=== PATIENT | male | born 1990 | race African-American/Black ===

== ENCOUNTER 2020-02-14 12:05 | Emergency (ER) | payer SELFPAY ==
--- NOTE | ~2020-02-14 | XR_ITS ---
EXAMINATION: XR finger 2nd RT min 2V DATE: 02/14/2020 13:30 INDICATION: Right hand second digit injury. TECHNIQUE: 4 views of right hand second digit were obtained. COMPARISON: None. FINDINGS: Bone alignment is normal. No fracture. Joint spaces are normal. There is a laceration of th e radial palmar aspect of the digit. IMPRESSION: 1. No fracture or radiopaque foreign body. Reviewed, dictated and finalized at location A.
[2020-02-14 12:36] VITALS: BP 140/97; PULSE 81; RESP 18; TEMP 36.8; O2SAT 100
--- NOTE | 2020-02-14 12:57 | ED.GENADULT ---
HPI - General Adult General Chief complaint: Extremity Injury, Upper <Quique Marin PA-C - Last Filed: 02/14/20 13:45> Stated complaint: finger laceration <Quiqeu Marin PA-C - Last Filed: 02/14/20 13:45> Time Seen by Provider: 02/14/20 12:46 <Quique Marin PA-C - Last Filed: 02/14/20 13:45> Source: patient <Quique Marin PA-C - Last Filed: 02/14/20 13:45> Mode of arrival: ambulatory <Quique Marin PA-C - Last Filed: 02/14/20 13:45> Limitations: no limitations <Quique Marin PA-C - Last Filed: 02/14/20 13:45> History of Present Illness HPI narrative: Patient is a 29-year-old male who presents to emergency department for evaluation of having struck his finger with a sledgehammer while working today patient is unsure as to his tetanus status patient notes mild aching pain worse with touch and activity patient denies any radicular symptoms or paresthesias has not had anything for pain and presents to the emergency department in no distress <Quique Marin PA-C - Last Filed: 02/14/20 13:45> Related Data Home medications: Home Medications Medication Instructions Recorded Confirmed No Home Medications 02/14/20 02/14/20 <Quique Marin PA-C - Last Filed: 02/14/20 13:45> Allergies/adverse reactions: Allergies Allergy/AdvReac Type Severity Reaction Status Date / Time guaifenesin [From Robitussin] Allergy Itching Verified 02/14/20 12:41 <Quique Marin PA-C - Last Filed: 02/14/20 13:45> Review of Systems Review of Systems: All systems reviewed & are unremarkable except as noted in HPI and below <Quique Marin PA-C - Last Filed: 02/14/20 13:45> [facility] Social History Social History: Social History Gender identity (if verbalized by the patient): Male <TAMMI Goel Last Filed: 02/14/20 13:45> Exam Narrative: Exam Narrative: GENERAL: Well-appearing, well-nourished, and in no acute distress. HEAD: Normocephalic, atraumatic. EYES: PERRLA and EOMI. ENT: Nares clear, no rhinorrhea or epistaxis. Mucous membranes moist. EXTREMITIES: Normal range of motion. No edema. Patient with 1-1/2 cm linear laceration of the mid phalanx of the right index finger SKIN: Warm, dry, no rash. NEURO: No focal deficits. Alert and oriented x3. Cranial nerves II through XII grossly intact. Neurovascularly intact PSYCH: Normal mood and affect. <TAMMI Goel Last Filed: 02/14/20 13:45> Course Course Emergency Course: Patient in the room in no distress aware of case findings treatment plan and diagnosis wound was closed in the emergency department <Quique Marin PA-C - Last Filed: 02/14/20 13:45> Vital Signs Vital signs: Vital Signs Temperature 36.8 C 02/14/20 12:36 Pulse Rate 81 02/14/20 12:36 Respiratory Rate 18 02/14/20 12:36 Blood Pressure 140/97 H 02/14/20 12:36 Pulse Oximetry 100 02/14/20 12:36 Temperature 36.6 C 02/14/20 13:58 Pulse Rate 79 02/14/20 13:58 Respiratory Rate 18 02/14/20 13:58 Blood Pressure 137/102 H 02/14/20 13:58 Pulse Oximetry 100 02/14/20 13:58 <TAMMI Goel Last Filed: 02/14/20 13:45> Vital Signs Temperature 36.8 C 02/14/20 12:36 Pulse Rate 81 02/14/20 12:36 Respiratory Rate 18 02/14/20 12:36 Blood Pressure 140/97 H 02/14/20 12:36 Pulse Oximetry 100 02/14/20 12:36 Temperature 36.6 C 02/14/20 13:58 Pulse Rate 79 02/14/20 13:58 Respiratory Rate 18 02/14/20 13:58 Blood Pressure 137/102 H 02/14/20 13:58 Pulse Oximetry 100 02/14/20 13:58 <Sachi [address] MD - Last Filed: 02/14/20 15:31> Procedures Laceration Laceration 1: Date: 02/14/20 <Quique Marin PA-C - Last Filed: 02/14/20 13:45> Time: 13:44 <Quique Marin PA-C - Last Filed: 02/14/20 13:45> Site: upper extremity <Quique Gonzalez
[2020-02-14] MEDS: IBUPROFEN 600 MG TABLET PO (13:00)
[2020-02-14] MEDS: TETANUS,DIPHTHERIA,AC PERTUSSIS ADULT (0.5 ML) BOOSTRIX IM (13:01)
[2020-02-14] MEDS: LIDOCAINE HCL 1% LOCAL INJ 20 ML VIAL (13:31)
[2020-02-14 13:58] VITALS: BP 137/102; PULSE 79; RESP 18; TEMP 36.6; O2SAT 100
== END 2020-02-14 14:00 | disposition home or self-care (01) ==
PROVIDERS: Emergency Provider Emergency Medicine
DX: S61.210A Laceration without foreign body of right index finger without damage to nail, initial encounter (principal); W27.8XXA Contact with other nonpowered hand tool, initial encounter; Z23 Encounter for immunization
CPT/HCPCS: 12001; 73140; 90471; 90715; 99283; A9270

== ENCOUNTER 2023-04-17 16:36 | Emergency (ER) | payer SELFPAY ==
--- NOTE | ~2023-04-17 | CT_ITS ---
EXAMINATION: CT abdomen pelvis w con DATE: 04/17/2023 17:54 INDICATION: Right flank pain TECHNIQUE: Computed tomography (CT) of the abdomen and pelvis was performed without intravenous contr ast. The dose-length product was 391.65 mGy-cm. Automated exposure control and iterative reconstructi on technique were employed. COMPARISON: None. FINDINGS: Lung bases are unremarkable. Heart size normal. No significant pleural or pericardial effus ion. Normal appendix. Fatty infiltration of the liver. The spleen, pancreas, adrenal glands and kidne ys are unremarkable. Small subcentimeter hypodensity of the right kidney, most likely benign cysts. N o abnormal pelvic masses or fluid collections. Nonobstructive bowel gas pattern. No free air or free fluid. No significant vascular abnormality. No lymphadenopathy. IMPRESSION: 1. No acute abdominal abnormality. Reviewed, dictated and finalized at location A.
[2023-04-17 16:51] VITALS: BP 150/104; PULSE 85; RESP 18; TEMP 36.6; O2SAT 100
[2023-04-17 17:15] LABS: Appearance Urine Clear (Clear); Bilirubin Urine Negative (Negative); Blood Urine Negative (Negative); Color Urine Yellow (Yellow); Glucose Urine UA Negative (Negative); Ketones Urine Trace mg/dL (Negative); Leukocyte Esterase Ur Negative LEU/UL (Negative); Nitrate Urine Negative (Negative); Protein Urine Negative (Negative); Specific Grav Ur 1.002 (1.001-1.035); Urobilinogen Urine 0.2 mg/dL (<2.0); pH Urine 6.5 (5.0-9.0)
[2023-04-17 17:18] LABS: Add Urine Microscopic? NO
[2023-04-17 17:31] LABS: Basophils Percent Auto 0.4 % (0.2-1.2); Eosinophils Absolute Auto 0.1 K/mm3 (0-0.3); Eosinophils Percent Auto 1.6 % (0-4.4); Hematocrit 43.5 % (42.0-52.0); Hemoglobin 14.7 g/dL (14.0-18.0); Lymphocytes Percent Auto 27.2 % (18.3-44.2); Mean Corpuscular HGB Conc 33.8 g/dl (32-36); Mean Corpuscular Hemoglobin 32.5 pg (26-34); Monocytes Absolute Auto 0.5 K/mm3 (0.1-0.6); Monocytes Percent Auto 9.9 % (2.6-8.5); Neutrophils Absolute Auto 3.1 K/mm3 (1.3-6.7); Neutrophils Percent Auto 60.9 % (45.5-73.1); Platelet Count Result 203 k/mm3 (150-375); Red Blood Count 4.53 M/mm3 (4.6-6.20); Red Cell Distribution Width 12.8 % (11.5-14.5); White Blood Count 5.1 K/mm3 (4.5-10.0)
[2023-04-17 17:34] LABS: Alanine Aminotransferase 234 U/L (6-50); Alkaline Phosphatase 54 U/L (38-126); Anion Gap 9 mmol/L (8-16); Aspartate Amino Transferase 182 U/L (17-59); Bilirubin,Total 1.1 mg/dL (0.2-1.3); Blood Urea Nitrogen 5 mg/dL (9-20); Calcium 9.7 mg/dL (8.4-10.2); Carbon Dioxide 28 mmol/L (22-30); Chloride 99 mmol/L (98-107); Estimated CRCL calculation 108 ml/min; Estimated Glomerular Filt Rate > 60; Glucose 97 mg/dL (65-110); Potassium 3.3 mmol/L (3.4-5.0); Sodium 136 mmol/L (137-145)
[2023-04-17 18:12] VITALS: BP 145/111; PULSE 86; RESP 18; O2SAT 100
--- NOTE | 2023-04-17 18:30 | ED.GENADULT ---
[facility] - General Adult General Chief complaint: Urogenital-Male Stated complaint: R flank pain x2 weeks Time Seen by Provider: 04/17/23 17:14 Source: patient Mode of arrival: ambulatory Limitations: no limitations History of Present Illness [facility] narrative: This is a 32-year-old male who presents to the ED with chief complaint of right flank pain for the past 2 weeks. Reports this started after heavy night of drinking. Reports that the pain just has not gone away. Denies urinary symptoms, nausea, vomiting, chest pain, shortness of breath, cough. He denies any known injury. Denies numbness, weakness or midline back pain. Related Data Allergies Allergy/AdvReac Type Severity Reaction Status Date / Time guaifenesin [From Robitussin] Allergy Itching Verified 04/17/23 17:09 Review of Systems Review of Systems: All systems as dictated in [facility] Social History Social History Gender identity (if verbalized by the patient): Male Exam Narrative: GENERAL: Well-appearing, well-nourished, and in no acute distress. HEAD: Normocephalic, atraumatic. EYES: PERRLA and EOMI. ENT: Nares clear, no rhinorrhea or epistaxis. Mucous membranes moist. Oropharynx without tonsillar hypertrophy exudate or other lesions. NECK: Supple. No adenopathy or masses. CHEST: No respiratory distress. Clear to auscultation. No wheezes rales or rhonchi HEART: Regular rate and rhythm. No murmur heard. Normal peripheral pulses. ABDOMEN: There is right flank tenderness. Negative for flank tenderness. Soft, otherwise nontender, nondistended, normal active bowel sounds. MSK: Normal range of motion. No edema. SKIN: Warm, dry, no rash. NEURO: Alert and oriented x3. No focal deficits. PSYCH: Normal mood and affect. Course Vital Signs Vital signs: Vital Signs Temperature 98 F 04/17/23 16:51 Pulse Rate 85 04/17/23 16:51 Respiratory Rate 18 04/17/23 16:51 Blood Pressure 150/104 H 04/17/23 16:51 Pulse Oximetry 100 04/17/23 16:51 Oxygen Delivery Room Air 04/17/23 16:51 Temperature 98 F 04/17/23 16:51 Pulse Rate 86 11/02/23 18:12 Respiratory Rate 18 04/17/23 18:12 Blood Pressure 145/111 H 04/17/23 18:12 Pulse Oximetry 100 04/17/23 18:12 Oxygen Delivery Room Air 04/17/23 16:51 Medical Decision Making MDM Narrative Medical decision making narrative: This is a 32-year-old male who presents to the ED with chief complaint of right flank pain for the past 2 weeks. Vitals are normal. Exam shows mild right flank tenderness, however he is having no urinary symptoms at all. Lab work-up is largely unremarkable. He does have slight elevations to AST and ALT. CT scan is unrevealing for any acute abdominal findings. There is evidence of fatty liver on the CT scan so this was discussed with the patient in conjunction with his liver labs. Encouraged to follow-up with PCP on this. UA shows trace ketones but no infection. Symptoms most likely consistent with musculoskeletal pain. Pt will be discharged in stable condition. Return precautions given and supportive measures discussed. Pt is understanding and agreeable with plan for discharge and follow-up with PCP. Vital Signs Vital Signs: Vital Signs Temperature 98 F 04/17/23 16:51 Pulse Rate 85 04/17/23 16:51 Respiratory Rate 18 04/17/23 16:51 Blood Pressure 150/104 H 04/17/23 16:51 Pulse Oximetry 100 04/17/23 16:51 Oxygen Delivery Room Air 04/17/23 16:51 Temperature 98 F 04/17/23 16:51 Pulse Rate 86 04/17/23 18:12 Respiratory Rate 18 04/17/23 18:12 Blood Pressure 145/111 H 04/17/23 18:12 Pulse Oximetry 100 04/17/23 18:12 Oxygen Delivery Room Air 04/17/23 16:51 Lab Data 04/17/23 17:08 04/17/23 17:08 Labs: Lab Results 04/17/23 04/17/23 Range/Units 16:58 17:08 WBC 5.1 (4.5-10.0) K/mm3 RBC 4.53 L (4.6-6.20)
== END 2023-04-17 19:01 | disposition home or self-care (01) ==
PROVIDERS: Family Medicine; Emergency Provider Physician Assistant
DX: R10.9 Unspecified abdominal pain (principal)
CPT/HCPCS: 36415; 74177; 80053; 81003; 85025; 99284; Q9967

== ENCOUNTER 2023-05-14 21:29 | Emergency (ER) | payer SELFPAY ==
--- NOTE | ~2023-05-14 | XR_ITS ---
EXAMINATION: XR chest 2V Exam Date/Time: 05/14/2023 21:40 NIGHT SHIFT SUPERVISOR HISTORY: chest pain LEFT SIDED THAT RADIATES TO LEFT ARM Comparison: None. RESULT: Lines, tubes, and devices: None. Lungs and pleura: Clear. Cardiomediastinal silhouette: Normal. Other: No acute osseous or upper abdominal finding. IMPRESSION: No acute cardiopulmonary process. Reviewed, dictated and finalized at location K. T SHIFT SUPERVISOR
--- NOTE | 2023-05-14 21:30 | ECG_ITS ---
Measurements Intervals [place] Rate: 99 P: 79 IN: 159 QRS: 66 QRSD: 88 T: 32 QT: 330 QTc: 424 Interpretive Statements SINUS RHYTHM BORDERLINE ST-T WAVE ABNORMALITY- INFERIOR LEADS BORDERLINE ECG NO PREVIOUS ECG AVAILABLE FOR COMPARISON Electronically Signed On 05-15-2023 6:27:41 ROAD FREIGHT CONDUCTOR by Edison Rose D.O.
[2023-05-14 21:38] VITALS: BP 150/103; PULSE 100; RESP 16; TEMP 36.6; O2SAT 100
[2023-05-14 21:49] LABS: Basophils Percent Auto 0.5 % (0.2-1.2); Eosinophils Absolute Auto 0.1 K/mm3 (0-0.3); Eosinophils Percent Auto 1.7 % (0-4.4); Hematocrit 42.3 % (42.0-52.0); Hemoglobin 14.4 g/dL (14.0-18.0); Immature Granulocyte Absolute 0.01 K/mm3 (0.00-0.031); Immature Granulocyte Percent A 0.2 % (0-0.5); Lymphocytes Absolute Auto 1.35 K/mm3 (0.9-3.2); Lymphocytes Percent Auto 32.9 % (18.3-44.2); Mean Corpuscular Hemoglobin 32.6 pg (26-34); Mean Corpuscular Volume 95.7 fl (80-100); Mean Platelet Volume 9.7 fl (7.4-10.4); Monocytes Absolute Auto 0.5 K/mm3 (0.1-0.6); Monocytes Percent Auto 11.7 % (2.6-8.5); Neutrophils Absolute Auto 2.2 K/mm3 (1.3-6.7); Platelet Count Result 219 k/mm3 (150-375); Red Blood Count 4.42 M/mm3 (4.6-6.20); Red Cell Distribution Width 12.8 % (11.5-14.5); White Blood Count 4.1 K/mm3 (4.5-10.0)
[2023-05-14 21:59] LABS: Alanine Aminotransferase 296 U/L (6-50); Alkaline Phosphatase 70 U/L (38-126); Anion Gap 14 mmol/L (8-16); Aspartate Amino Transferase 248 U/L (17-59); Bilirubin,Total 1.2 mg/dL (0.2-1.3); Blood Urea Nitrogen 9 mg/dL (9-20); Calcium 9.7 mg/dL (8.4-10.2); Carbon Dioxide 26 mmol/L (22-30); Chloride 97 mmol/L (98-107); Estimated CRCL calculation 108 ml/min; Estimated Glomerular Filt Rate > 60; Glucose 95 mg/dL (65-110); Lipase 89 U/L (23-300); Potassium 3.5 mmol/L (3.4-5.0); Sodium 137 mmol/L (137-145)
[2023-05-14 22:00] LABS: INR 0.9; Prothrombin Time 12.8 Seconds (11.1-14.7)
[2023-05-14 22:01] LABS: Partial Thromboplastin Time 25.8 SECONDS (22.3-36.8)
[2023-05-14 22:11] LABS: Troponin I < 0.012 ng/mL (0.000-0.034)
[2023-05-14 23:13] VITALS: BP 131/93; PULSE 94; RESP 15; O2SAT 100
[2023-05-14] MEDS: ASPIRIN 81 MG CHEWABLE TABLET 324 MG PO (23:15)
--- NOTE | 2023-05-15 00:06 | ED.GENADULT ---
HPI - General Adult General Chief complaint: Chest Pain Stated complaint: L arm pain, intermittent CP Time Seen by Provider: 05/14/23 22:59 History of Present Illness HPI narrative: Patient is a 32-year-old gentleman who presents to emergency department with chief complaint of chest pain. Patient reports that yesterday started having some pain in the left side of his chest patient states today felt as though his left arm was heavier. The patient states that he has had an episode similar to this recently but did not have the discomfort in his arm the patient reports he did not see a primary care provider ordered not seen emergency department. The patient reports no prior history of medical issues denies family history for young cardiac disease also reports that he has recently quit smoking. Related Data Allergies Allergy/AdvReac Type Severity Reaction Status Date / Time guaifenesin [From Robitussin] Allergy Itching Verified 04/17/23 17:09 Review of Systems Review of Systems: A 10 system review of systems was completed on the patient and is negative except for what is stated in the HPI. Nursing and ancillary documentation was reviewed. [facility] Social History Social History Gender identity (if verbalized by the patient): Male Exam Narrative: GENERAL: Well-appearing, well-nourished, and in no acute distress. HEAD: Normocephalic, atraumatic. EYES: PERRLA and EOMI. ENT: Nares clear, no rhinorrhea or epistaxis. Mucous membranes moist. NECK: Supple. CHEST: Clear to auscultation. No respiratory distress. HEART: Regular rate and rhythm. No murmur heard. Normal peripheral pulses. ABDOMEN: Soft, nontender, nondistended, normal active bowel sounds. EXTREMITIES: Normal range of motion. No edema. SKIN: Warm, dry, no rash. NEURO: No focal deficits. Alert and oriented x3. PSYCH: Normal mood and affect. Course Vital Signs Vital signs: Vital Signs Temperature 36.6 C 05/14/23 21:38 Pulse Rate 100 05/14/23 21:38 Respiratory Rate 16 05/14/23 21:38 Blood Pressure 150/103 H 05/14/23 21:38 Pulse Oximetry 100 05/14/23 21:38 Oxygen Delivery Room Air 05/14/23 21:38 Temperature 36.6 C 05/14/23 21:38 Pulse Rate 94 05/14/23 23:13 Respiratory Rate 15 05/14/23 23:13 Blood Pressure 131/93 H 05/14/23 23:13 Pulse Oximetry 100 05/14/23 23:13 Oxygen Delivery Room Air 05/14/23 21:38 Medical Decision Making MDM Narrative Medical decision making narrative: Differential diagnosis includes ACS, noncardiac chest pain, pneumothorax, laboratory studies were obtained and show normal CBC CMP was within normal limits AST and ALT were slightly elevated at 248 and 296 respectively. These were also slightly elevated earlier this month the root was evaluated troponin was less than 0.012. Bilirubin was normal at 1.2 on patient's previous ER visit with the elevated liver enzymes and CT scan showed fatty liver Vital Signs Vital Signs: Vital Signs Temperature 36.6 C 05/14/23 21:38 Pulse Rate 100 05/14/23 21:38 Respiratory Rate 16 05/14/23 21:38 Blood Pressure 150/103 H 05/14/23 21:38 Pulse Oximetry 100 05/14/23 21:38 Oxygen Delivery Room Air 05/14/23 21:38 Temperature 36.6 C 05/14/23 21:38 Pulse Rate 94 05/14/23 23:13 Respiratory Rate 15 05/14/23 23:13 Blood Pressure 131/93 H 05/14/23 23:13 Pulse Oximetry 100 05/14/23 23:13 Oxygen Delivery Room Air 05/14/23 21:38 Lab Data 05/14/23 21:44 05/14/23 21:44 Labs: Lab Results 05/14/23 05/15/23 Range/Units 21:44 00:56 WBC 4.1 L (4.5-10.0) K/mm3 RBC 4.42 L (4.6-6.20) M/mm3 Hgb 14.4 (14.0-18.0) g/dL Hct 42.3 (42.0-52.0) % MCV 95.7 (80-100) fl MCH 32.6 (26-34) pg MCHC 34.0 (32-36) g/dl RDW 12.8 (11.5-14.5) % Plt Count 219 (150-375) k/mm3 MPV 9.7 (7.4-10.4) fl
[2023-05-15 01:28] LABS: Troponin I < 0.012 ng/mL (0.000-0.034)
[2023-05-15 01:39] VITALS: BP 138/94; PULSE 100; RESP 15; O2SAT 100
== END 2023-05-15 01:40 | disposition home or self-care (01) ==
PROVIDERS: Emergency Provider Emergency Medicine
DX: R07.89 Other chest pain (principal)
CPT/HCPCS: 36415; 71046; 80053; 83690; 84484; 85025; 85610; 85730; 93005; 99284; A9270

== ENCOUNTER 2024-08-01 10:43 | Emergency (ER) | payer OTHER, SELFPAY ==
--- NOTE | ~2024-08-01 | XR_ITS ---
HISTORY: WOKE UP W R WRIST PAIN THURS DENIES INJURY COMPARISON: None TECHNIQUE: 4 views of the right wrist were performed. FINDINGS: No acute fracture is identified. The carpal arcs are intact. Mild radiocarpal joint space narrowing with sclerosis of the distal radius is present. The remaining visualized joint spaces are otherwise preserved. Bone mineralization is unremarkable. No significant soft tissue swelling is noted. No radiopaque foreign body is identified. IMPRESSION: Trace degenerative disease, without acute fracture. Reviewed, dictated and finalized at location A. [employer]SOFT CRM DEVELOPER
--- OUTSIDE RECORDS SUMMARY | 2024-08-01 10:45 | XMS_ITS | Clinical Summary ---
Author Organization [facility] Address [address] [place] [address] Care Team Providers Care Forest Law And Policy Professor Name Role Phone No, Physician Primary Care Provider [phone] Allergies Active Allergy Reactions Criticality Noted Date Comments Guaifenesin Rash Medium 08/17/2014 Rash Medications ondansetron ODT (ZOFRAN-ODT) 4 mg disintegrating tablet Take 1 tablet (4 mg total) by mouth every 8 (eight) hours as needed for nausea or vomiting 10 tablet Active Social History Tobacco Use Types Packs/Day Years Used Date Smoking Tobacco: Never Assessed Personal Safety Answer Date Recorded Getting School Help Needed Not on file 01/02 Sex and Gender Information Value Date Recorded Sex Assigned at Not on file 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 Gender Identity Not on file Sexual Orientation Not on file Last Filed Vital Signs Vital Sign Reading Time Taken Comments Blood Pressure 138/88 12/07/2022 6:00 PM CDT Pulse 68 12/07/2022 6:00 PM CDT Temperature 36.7 C (98.1 F) 12/07/2022 2:26 PM CDT Respiratory Rate 16 12/07/2022 6:00 PM CDT Oxygen Saturation 98% 12/07/2022 6:00 PM CDT Inhaled Oxygen Concentration - - Weight 77.1 kg (170 lb) 12/07/2022 2:26 PM CDT Height 177.8 cm (5' 10 ) 12/07/2022 2:26 PM CDT Body Mass Index 24.39 12/07/2022 2:26 PM CDT Plan of Treatment Health Maintenance Due Date Last Done Comments Depression Screening 1991 Hepatitis C Screening 1991 Varicella Vaccines (1 of 2 - 13+ 2-dose series) 11/29/2004 Regular Well Visit/Exam 18-64 11/29/2009 Influenza Vaccine (#1) 2024 DTaP/Tdap/Td Vaccine (7 - Td or Tdap) 02/13/2030 02/14/2020, 12/17/1995, 01/01/1994, Additional history exists HPV Vaccines Aged Out No longer eligi ble based on patient's age to complete this topic Pneumococcal vaccine <65 Aged Out No longer eligible based on patient's age to complete this topic Care Teams Forest Law And Policy Professor Relationship Specialty Start Date End Date No, Physician PCP - General 12/07/22
--- OUTSIDE RECORDS SUMMARY | 2024-08-01 10:45 | XMS_ITS | Referral Summary ---
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
[2024-08-01 10:54] VITALS: BP 137/100; PULSE 95; RESP 20; TEMP 36.5; O2SAT 100
--- OUTSIDE RECORDS SUMMARY | 2024-08-01 11:32 | XMS_ITS | Referral Summary ---
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
--- OUTSIDE RECORDS SUMMARY | 2024-08-01 11:32 | XMS_ITS | Clinical Summary ---
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
--- NOTE | 2024-08-01 11:43 | ED.GENADULT ---
HPI - General Adult General Chief complaint: Extremity Problem,Nontraumatic Stated complaint: right wrist pain Time Seen by Provider: 08/01/24 11:15 History of Present Illness HPI narrative: Patient is a 33-year-old male who presents ER with pain to his right thumb and wrist for worsening over last 2 days. No known injury. Has developed swelling. Pain is worse with flexion extension of the wrist and at the thumb. He has pain with pinching. No anesthesia but has some tingling that goes into his 2nd digit with carpal tunnel compression. Works as a cook at [employer]. Related Data Allergies Allergy/AdvReac Type Severity Reaction Status Date / Time guaifenesin (From Robitussin) Allergy Itching Verified 04/17/23 17:09 Review of Systems Constitutional: Constitutional: Reports no additional constitutional complaints Musculoskeletal: Musculoskeletal: Reports no additional musculoskeletal complaints PMFSH Past Medical History Medical History (Updated 08/01/24 @ 17:34 by Chester Mendez MD) Healthy adult male Surgical History Surgical History (Updated 08/01/24 @ 17:34 by Chester Mendez MD) No pertinent past surgical history Social History Social History Gender identity (if verbalized by the patient): Male Exam Narrative: GENERAL: Well-appearing, well-nourished, and in no acute distress. HEAD: Normocephalic, atraumatic. ENT: Mucous membranes moist. EXTREMITIES: TTP over the right proximal thumb at the wrist. Has limited flexion extension due to pain. Has swelling in the area and is tenderness at the anatomical snuffbox but may be more over the tendon itself. Range of motion the fingers intact. Mild discomfort with carpal tunnel compression with tingling reported in the 2nd digit. SKIN: Warm, dry, no rash. NEURO: Alert and oriented x3. PSYCH: Normal mood and affect. Course Course Emergency Course: No known injury. Suspect de Quervain tenosynovitis. Discussed immobilization with a wrist splint and I have shown him images of cyst appropriate splints that he can place on his thumb. Recommend anti-inflammatories and rest as well as follow-up with ortho. Vital Signs Vital signs: Vital Signs Temperature 97.7 F 08/01/24 10:54 Pulse Rate 95 08/01/24 10:54 Respiratory Rate 08/01/24 10:54 Blood Pressure 137/100 H 08/01/24 10:54 Pulse Oximetry 08/01/24 10:54 Oxygen Delivery Room Air 08/01/24 10:54 Temperature 97.7 F 08/01/24 10:54 Pulse Rate 95 08/01/24 10:54 Respiratory Rate 08/01/24 10:54 Blood Pressure 137/100 H 08/01/24 10:54 Pulse Oximetry 08/01/24 10:54 Oxygen Delivery Room Air 08/01/24 10:54 Medical Decision Making Vital Signs Vital Signs: Vital Signs Temperature 97.7 F 08/01/24 10:54 Pulse Rate 95 08/01/24 10:54 Respiratory Rate 08/01/24 10:54 Blood Pressure 137/100 H 08/01/24 10:54 Pulse Oximetry 08/01/24 10:54 Oxygen Delivery Room Air 08/01/24 10:54 Temperature 97.7 F 08/01/24 10:54 Pulse Rate 08/01/24 10:54 Respiratory Rate 08/01/24 10:54 Blood Pressure 137/100 H 08/01/24 10:54 Pulse Oximetry 08/01/24 10:54 Oxygen Delivery Room Air 08/01/24 10:54 Imaging Data Radiologist's impression: ITS Impressions Wrist X-Ray 08/01/24 11:27 IMPRESSION: Trace degenerative disease, without acute fracture. Discharge Plan Discharge Clinical Impression: De Quervain's tenosynovitis, right Patient Disposition: Home, Self-Care Condition: Stable Instructions: De Quervain Disease (ED) Additional Instructions: Purchase a thumb splint that immobilizes your right thumb in wear it 24 hours a day. Take naproxen to help with inflammation. This is an overuse injury and rest is the most important treatment. Follow up with Orthopedic surgery or primary care physician for further evaluation. Patient Language: Kinyarwanda Prescriptions: New naproxen 375 mg tablet 375 mg PO BID Qty: 14 0RF No Action cyclobenzaprine 10 mg tablet 10 mg PO HS PRN (Reason: muscle spasm) Qty: 14 0RF Follow-up/Referrals: Chandra Cook MD [Physician] - 1 Week PHYSICIAN,PRIMARY SPECIAL EDUCATION TEACHER [Primary Care Provider] -
== END 2024-08-01 11:57 | disposition home or self-care (01) ==
PROVIDERS: Emergency Provider Emergency Medicine
DX: M65.4 Radial styloid tenosynovitis [de Quervain] (principal)
CPT/HCPCS: 73110; 99283

== ENCOUNTER 2025-03-11 18:42 | Emergency (ER) | payer OTHER, SELFPAY ==
--- NOTE | ~2025-03-11 | XR_ITS ---
EXAMINATION: XR chest 2V 03/11/2025 19:27 INDICATION: Heart palpitations. PROCEDURE: 2 view chest COMPARISON: 05/14/2023 FINDINGS: The lungs are clear. The cardiomediastinal silhouette is within normal limits. There are no pleural effusions. There is no pneumothorax suspected. IMPRESSION: 1: NO ACUTE CARDIOPULMONARY DISEASE. Reviewed, dictated and finalized at location O.
[2025-03-11 18:51] VITALS: BP 138/91; PULSE 76; RESP 16; TEMP 36.4; O2SAT 100
--- NOTE | 2025-03-11 18:53 | ECG_ITS ---
Test Date: 2025-03-11 19:09:43 Measurements Intervals [place] Rate: 86 P: 65 MO: 162 QRS: 55 QRSD: 97 T: 13 QT: 361 QTc: 433 Interpretive Statements SINUS RHYTHM NONSPECIFIC T-WAVE ABNORMALITY No previous ECG available for comparison Electronically Signed On 03-12-2025 09:10:05 CDT by Misty Torres M.D.
--- NOTE | 2025-03-11 19:06 | ED.GENADULT ---
HPI - General Adult General Stated complaint: Heart Problems Time Seen by Provider: 03/11/25 19:06 Source: patient Mode of arrival: ambulatory Limitations: no limitations History of Present Illness HPI narrative: 34-year-old male presents with complaint of 2 episodes of heart palpitations with shortness of breath, tightness to left jaw and diaphoresis. Both times episodes happened while at work. Episodes happened 1 week apart from each other. Lasted only a few seconds and then resolved. Both times he left work. The 1st time he went home and rested. This time he came to the urgent care. Needs work excuse because he left work. 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 Patient states that he has been stressed. Car is broken down and is taking [employer] in to work. Patient last saw a primary care physician in August. Missed his appointment to get his labs drawn and never went back. All systems reviewed and negative except as noted above. Related Data Home Medications ?Medication ?Instructions ?Recorded ?Confirmed ?Last Taken ?Type No Home Medications 03/11/25 03/11/25 Unknown History Allergies Allergy/AdvReac Type Severity Reaction Status Date / Time guaifenesin (From Robitussin) Allergy Itching Verified 03/11/25 19:37 [facility] Past Medical History Medical History (Updated 03/11/25 @ 19:45 by Edna Patel NP) Healthy adult male Surgical History Surgical History (Updated 08/01/24 @ 17:34 by Chester Mendez MD) No pertinent past surgical history Social History Social History Gender identity (if verbalized by the patient): Male Comments At time of signature, agree with nursing past medical, surgical, social and family history. There is no relevant family history pertinent to the presenting complaint. Exam Narrative: GENERAL: This is a well-nourished, well-developed patient, in no apparent distress. HEAD: normocephalic, atraumatic. EYES: PERRL. Sclera clear/white. Vision is grossly intact. EARS: External ears normal, auditory canals clear and without drainage, TMs normal without perforation. Hearing grossly intact. NOSE: External nose normal with no obvious nasal discharge, nares without redness, no rhinorrhea. THROAT: Mucous membranes moist, posterior pharynx clear. NECK: Neck supple, non-tender without lymphadenopathy, masses or thyromegaly. CARDIOVASCULAR: Regular rate and rhythm without murmurs, gallops, or rubs. RESPIRATORY: Clear to auscultation. Breath sounds equal bilaterally. No wheezes, rales, or rhonchi. SKIN: warm, Dry, intact with no suspicious lesions or rash, good texture and turgor. NEURO: awake, alert, and oriented to person, place and time. There were no obvious focal neurologic abnormalities. EXTREMITIES: No joint tenderness, effusion, or edema noted. Course Course Level of Care: Express Care Visit Vital Signs Vital signs: Vital Signs Temperature 36.4 C 03/11/25 18:51 Pulse Rate 76 03/11/25 18:51 Respiratory Rate 16 03/11/25 18:51 Blood Pressure 138/91 H 03/11/25 18:51 Pulse Oximetry 100 03/11/25 18:51 Oxygen Delivery Room Air 03/11/25 18:51 Temperature 36.4 C 03/11/25 18:51 Pulse Rate 76 03/11/25 18:51 Respiratory Rate 16 03/11/25 18:51 Blood Pressure 138/91 H 03/11/25 18:51 Pulse Oximetry 100 03/11/25 18:51 Oxygen Delivery Room Air 03/11/25 18:51 Reviewed Medical Decision Making MDM Narrative Medical decision making narrative: EKG HR 86, sinus rhythm, no ischemic findings. normal chest x-ray. Blood sugar 88. Patient states he has not ate all day. We discussed patient's symptoms and recent stress at home and work. Patient's symptoms are concerning for panic attack. Offer to transfer patient to ER for full cardiac workup and he did not feel was necessary. Points of follow-up with his primary care physician. Patient states if symptoms come back or worse will go to the ER next time. Patient is well-appearing at discharge. Talkative and laughing. Did not experience any chest pain, palpitations, shortness breath, diaphoresis, left jaw pain while at [facility]. Vital Signs Vital Signs: Vital Signs Temperature 36.4 C 03/11/25 18:51 Pulse Rate 76 03/11/25 18:51 Respiratory Rate 16 03/11/25 18:51 Blood Pressure 138/91 H 03/11/25 18:51 Pulse Oximetry 100 03/11/25 18:51 Oxygen Delivery Room Air 03/11/25 18:51 Temperature 36.4 C 03/11/25 18:51 Pulse Rate 76 03/11/25 18:51 Respiratory Rate 16 03/11/25 18:51 Blood Pressure 138/91 H 03/11/25 18:51 Pulse Oximetry 100 03/11/25 18:51 Oxygen Delivery Room Air 03/11/25 18:51 Imaging Data My impression: Agree with radiologist Radiologist's impression: EXAMINATION: XR chest 2V 03/11/2025 19:27 INDICATION: Heart palpitations. PROCEDURE: 2 view chest COMPARISON: 05/14/2023 FINDINGS: The lungs are clear. The cardiomediastinal silhouette is within normal limits. There are no pleural effusions. There is no pneumothorax suspected. IMPRESSION: 1: NO ACUTE CARDIOPULMONARY DISEASE. Discharge Plan Discharge Clinical Impression: Panic attack as reaction to stress Patient Disposition: Home Condition: Stable Instructions: Panic Attack (ED) Additional Instructions: your chest x-ray was normal today. Your blood sugar was 88. Your EKG was normal. Follow-up with your primary care physician for further evaluation of your symptoms. If you develope these symptoms again go to the ER. Patient Language: Togolese Prescriptions: No Action cyclobenzaprine 10 mg tablet 10 mg PO HS PRN (Reason: muscle spasm) Qty: 14 0RF naproxen 375 mg tablet 375 mg PO BID Qty: 14 0RF Follow-up/Referrals: Marbin Uribe MD [Physician, Family Practice] Referral Note: follow-up with your primary care physician at next available appointment Stand Alone Forms: Work/School Release IP Time of Disposition: 19:45
== END 2025-03-11 19:51 | disposition home or self-care (01) ==
PROVIDERS: Emergency Provider Nurse Practitioner Family
DX: F43.0 Acute stress reaction (principal)
CPT/HCPCS: 71046; 82948; 93005; 99213; G0463

== ENCOUNTER 2025-05-29 13:32 | Emergency (ER) | payer OTHER, SELFPAY ==
--- NOTE | 2025-05-29 13:34 | ED_ITS ---
HPI - URI/Sore Throat General Chief Complaint: Upper Respiratory Infection Stated Complaint: sore throat/right ear pain Time Seen by Provider: 05/29/25 13:53 Source: patient, RN notes reviewed and old records reviewed Mode of arrival: ambulatory Limitations: no limitations History of Present Illness HPI Narrative: 34-year-old male presents to the [facility] with 1 day history of right ear pain. Sore throat for 1 week. Reports that he has had some Oily drainage from the ear. Has taken cold medications Related Data Allergies Allergy/AdvReac Type Severity Reaction Status Date / Time guaifenesin (From Robitussin) Allergy Itching Verified 05/29/25 13:47 Review of Systems Review of Systems: All systems reviewed & are unremarkable except as noted in HPI and below Constitutional: Constitutional: Reports no additional constitutional complaints ENT: Reports as per HPI, Reports otalgia (right ) and Reports sore throat Cardiovascular: Cardiovascular: Reports no additional cardiovascular complaints, Denies chest pain and Denies dyspnea Respiratory: Respiratory: Reports no additional respiratory complaints, Denies chest congestion, Denies cough and Denies dyspnea Musculoskeletal: Musculoskeletal: Reports no additional musculoskeletal complaints Integumentary/Breasts: Skin/Breast: Reports system reviewed and no additional complaints, except as docu PMFSH Past Medical History Medical History Healthy adult male Surgical History Surgical History No pertinent past surgical history Social History Social History Gender identity (if verbalized by the patient): Male Comments At the time of my signature, I reviewed and agree with the nursing past medical, surgical, social, and family history. There is no relevant family history pertinent to the patient complaint. Exam Const: General: cooperative, well developed, alert, uncomfortable and well nourished Nutritional Appearance: well nourished Orientation/consciousness: patient oriented x3 Limitations: no limitations HENMT: Head: normal to inspection Ears: hearing grossly normal bilaterally, external ears normal, TM normal on the left, EAC's normal, mastoids normal, no periauricular adenopathy and TM abnormal bulging and erythematous Face and sinus: normal facial exam and face symmetric Mouth: Yes Normal oral and palatal mucosa present, Yes lip normal, Yes tongue normal and Yes moist mucous membranes Throat: posterior oropharynx normal, uvula midline and no uvular edema Eyes: General: appearance normal, both eyes and all related structures Alignment and Position: alignment normal Neck: Neck: normal visual inspection, full ROM, no lymphadenopathy and no meningeal signs Chest: Chest palpation & inspection: normal inspection of the chest Resp: Effort & Inspection: normal respiratory effort and able to speak in complete sentences Auscultation: clear to auscultation bilaterally, no crackles, no rales, no rhonchi and no wheezes Cardio: Rate: regular rate Skin: General skin exam: normal color and no rashes or lesions noted Neuro: General: patient oriented x3, gait normal, moves all extremities and no meningeal signs Cognition (Neuro): normal cognition Speech: normal speech Gait exam (Neuro): Normal gait present Extrem: General: normal to inspection, full ROM, capillary refill normal and normal gait Psych: Appearance: grossly normal and well kempt Mental Status: mental status grossly normal Speech and movement: Normal speech and movement present and Clear speech present Affect: normal affect Attitude: cooperative Course Course Level of Care: Express Care Visit Vital Signs Vital signs: Vital Signs Temperature 97.7 F 05/29/25 13:45 Pulse Rate 87 05/29/25 13:45 Respiratory Rate 18 05/29/25 13:45 Blood Pressure 136/104 H 05/29/25 13:45 Pulse Oximetry 100 05/29/25 13:45 Oxygen Delivery Room Air 05/29/25 13:45 Temperature 97.7 F 05/29/25 13:45 Pulse Rate 87 05/29/25 13:45 Respiratory Rate 18 05/29/25 13:45 Blood Pressure 136/104 H 05/29/25 13:45 Pulse Oximetry 100 05/29/25 13:45 Oxygen Delivery Room Air 05/29/25 13:45 reviewed MDM MDM Narrative Medical decision making narrative: patient sitting in exam room. Patient is nontoxic but appears uncomfortable. Patient presents 1 day history of right ear pain, significant erythema and bulging noted to the right TM. Patient appropriate for outpatient treatment and close follow-up Discharge instructions reviewed with patient, as well as provided in writing per nursing staff. The instructions also include specific and strict return/GO TO THE ER as well as f/u information. All questions have been answered, and the patient deny any further questions with discharge and discharge plan. Some parts of this dictation were generated by voice recognition software and may contain typographical and/or grammatical inaccuracies. Differential Diagnosis Differential Diagnosis: Differential diagnostic considerations for upper respiratory infection include upper respiratory infection, croup, otitis media, sinusitis, viral infection, bronchitis, influenza, pharyngitis, strep, uvulitis.? Medical Records I have reviewed the following patient records and this information was taken into consideration when formulating the assessment and plan.: previous ER visits and previous clinic visits Discharge Plan Discharge Clinical Impression: Acute right otitis media Patient Disposition: Home Condition: Stable Instructions: Antibiotic Form, Ear Infection (ED) Additional Instructions: today your blood pressure was 136/104. It is very important to treat your symptoms. Drink plenty of water, Gatorade, Pedialyte, ice pops or Jell-O. -Alternate Tylenol and Motrin per package directions for fever or pain. You can alternate every 4 hours -Antihistamine medication such as Zyrtec/Claritin during the day can help improve symptoms. -doing daily nasal irrigations can help relieve pressure your sinuses. Things like a Neti pot -Use Flonase daily to help reduce the inflammation and dry up your sinuses. -You can also use Mucinex. Be sure to drink plenty of water with this medication at least 8 ounces with every dose and it is important to drink 8 to 10 glasses of water per day. Water is a natural decongestant -Eat and drink things that are easy to swallow, like tea or soup, or popsicles. -Oral rinses such as: Salt water gargles and/or may use topical anesthetic (eg. Chloraseptic spray) or lozenges to relieve dryness or throat pain). -Frequent hand washing or hand last ironer is one of the best ways to prevent spread of infection. -Using a vaporizer or humidifier at night will also help thin secretions and help with coughing up phlegm. -Follow up with primary care provider in 7-10 days if condition is not improving - For new or worsening symptoms go directly to the nearest ER Patient Language: Maltese Prescriptions: New amoxicillin 875 mg tablet 875 mg PO Q12H Qty: 20 0RF ibuprofen 600 mg tablet 600 mg PO TID PRN (Reason: fever or pain) Qty: 30 0RF Follow-up/Referrals: Marbin Uribe MD [Primary Care Provider, Family Practice] - 2 Weeks Stand Alone Forms: Work/School Release IP Time of Disposition: 14:04
[2025-05-29 13:45] VITALS: BP 136/104; PULSE 87; RESP 18; TEMP 36.5; O2SAT 100
== END 2025-05-29 14:09 | disposition home or self-care (01) ==
PROVIDERS: Emergency Provider Nurse Practitioner; PCP Emergency Medicine
DX: H66.91 Otitis media, unspecified, right ear (principal)
CPT/HCPCS: 99213; G0463